=== PATIENT | male | born 1960 | race Caucasian/White ===

== ENCOUNTER → 2017-04-19 | Outpatient (CLI) | payer MEDICAID ==
[~2017-04-19] MED LIST: AMOXICILLIN500 M2 PO; LEVOTHYROXIN0.025 M3 PO; LISINOPRIL 20MG20 MG PO; LISINOPRIL/HCTZ1 TA3 FT; METOPROLOL SUC100 M1 PO; METOPROLOL SUC100 M2 PO; VALIUM 10MG TAB10 MG PO
[2017-04-19 18:59] LABS: HEMOGLOBIN 14.8 g/dL (14.1-18.0); LYMPH # 1.9 K/mm3 (0.7-4.5); LYMPH % 20.1 % (10-50)
[2017-04-19 19:27] LABS: BUN 24 mg/dL (7-18)
[2017-04-19 19:32] LABS: AMPHETAMINES/METAMPHETAMINES NEGATIVE ng/mL (<1000); GFR (ESTIMATED) 63 ML/MIN (>60)
[2017-04-21 08:51] LABS: PSA, Free <0.01 ng/mL; Prostate Specific Ag <0.1 ng/mL (0.0-4.0)
== END ==
LOC: LAB 18:45
PROVIDERS: Nurse Practitioner Family
DX: I10 Essential (primary) hypertension (principal); C61 Malignant neoplasm of prostate; Z79.899 Other long term (current) drug therapy